=== PATIENT | male | born 1950 | race Caucasian/White ===

== ENCOUNTER 2023-06-05 10:37 | Emergency (ER) | payer MEDICARE, OTHER ==
[2023-06-05 12:05] LABS: BASOPHILS ABSOLUTE AUTO 0.07 K/uL (0.00-0.10); BASOPHILS PERCENT AUTO 0.6 % (0.1-1.3); EOSINOPHILS ABSOLUTE AUTO 0.08 K/uL (0.00-0.40); EOSINOPHILS PERCENT AUTO 0.7 % (0.0-5.4); HEMATOCRIT 32.8 % (38.4-49.7); HEMOGLOBIN 10.6 g/dL (12.9-16.9); IMMATURE GRAN ABSOLUTE AUTO 0.04 K/uL (0.00-0.23); IMMATURE GRAN PERCENT AUTO 0.4 % (0.0-0.7); LYMPHOCYTES ABSOLUTE AUTO 1.04 K/uL (0.8-3.3); LYMPHOCYTES PERCENT AUTO 9.4 % (11.4-47.7); MEAN CORPUSCULAR HEMOGLOBIN 30.1 pg (31.6-35.5); MEAN CORPUSCULAR HGB CONC 32.3 g/dL (31.6-35.5); MEAN CORPUSCULAR VOLUME 93.2 fL (81.4-99.0); MONOCYTES ABSOLUTE AUTO 1.56 K/uL (0.20-0.90); MONOCYTES PERCENT AUTO 14.1 % (3.3-12.6); NEUTROPHILS ABSOLUTE AUTO 8.28 K/uL (1.0-7.6); NEUTROPHILS PERCENT AUTO 74.8 % (40.0-78.1); PLATELET COUNT,PLT 189 K/uL (130-375); RED BLOOD CELL COUNT 3.52 M/uL (4.14-5.76); WHITE BLOOD CELL COUNT,WBC 11.1 K/uL (3.2-11.0)
== END 2023-06-05 12:52 | disposition home or self-care (01) ==
LOC: JP.ED 10:37
DX: M10.9 Gout, unspecified (principal); I25.10 Atherosclerotic heart disease of native coronary artery without angina pectoris; J44.9 Chronic obstructive pulmonary disease, unspecified; E78.00 Pure hypercholesterolemia, unspecified; I10 Essential (primary) hypertension; K21.9 Gastro-esophageal reflux disease without esophagitis; Z95.0 Presence of cardiac pacemaker; Z87.891 Personal history of nicotine dependence; Z79.01 Long term (current) use of anticoagulants; Z79.899 Other long term (current) drug therapy; Z88.8 Allergy status to other drugs, medicaments and biological substances
CPT/HCPCS: 36415; 84550; 85025; 86140; 99283

== ENCOUNTER 2025-06-13 12:33 | Emergency (ER) | payer MEDICARE | END 2025-06-13 14:25 | disposition home or self-care (01) | LOC: JP.ED 12:33 | DX: L03.116 Cellulitis of left lower limb (principal); S81.812D Laceration without foreign body, left lower leg, subsequent encounter; Z79.899 Other long term (current) drug therapy; Z88.8 Allergy status to other drugs, medicaments and biological substances; K21.9 Gastro-esophageal reflux disease without esophagitis; W18.11XA Fall from or off toilet without subsequent striking against object, initial encounter | CPT/HCPCS: 99283 ==